=== PATIENT | male | born 1945 | race Caucasian/White ===

== ENCOUNTER 2020-04-02 07:35 | Outpatient (CLI) | payer MEDICARE, MEDICAID, SELFPAY ==
--- NOTE | 2020-04-02 08:00 | NM_ITS ---
WS: [id number] NUCLEAR MEDICINE HIDA SCAN CLINICAL INFORMATION: ABDONINAL PAIN TECHNIQUE: Following intravenous administration of 8.1 mCi of technetium 99m mebrofenin, images of th e abdomen were obtained over the course of 60 minutes. Next, gallbladder ejection fraction was determ ined by obtaining preprandial and one-hour postprandial images of the gallbladder following oral miguel stion of Ensure. COMPARISON: None. FINDINGS: Normal hepatic uptake at 5 minutes. Common bile duct is visualized by 10 minutes. Normal common bile duct and small bowel activity. Gallbladder is visualized by 15 minutes. No evidence of acute cholecys titis or choledocholithiasis. Gallbladder ejection fraction 65% within normal limits. No evidence of chronic cholecystitis. NM/NM hepatobiliary w phar* [id number] IMPRESSION: 1. No evidence of acute or chronic cholecystitis. 2. Gallbladder ejection fraction 65% within normal limits.
== END 2020-04-02 07:36 | disposition home or self-care (01) ==
LOC: NM 07:35
PROVIDERS: PCP Nurse Practitioner Family; Visit Provider Surgery
DX: R10.9 Unspecified abdominal pain (principal)
CPT/HCPCS: 78227; A9537

== ENCOUNTER 2020-04-25 08:04 | Outpatient (CLI) | payer MEDICARE, MEDICAID, SELFPAY ==
--- NOTE | 2020-04-25 08:45 | USCV_ITS ---
Stephanie Nixon Age: 74 Gender: M : 1945 Exam Date: 04/25/2020 08:22 Ordering Phys: Manjeet Cardozo MD Technologist: Yisel Ortiz [place] [facility] [place]ication: ABD PAIN ESPECIALLY AFTER EATING SOLIDS Type of Exam: Mesenteric Artery 8 Ounces Of ENSURE PLUS Time of Ingestion: 8:47 Minutes Post-Prandial: 20 Pre-Prandial Post-Prandial SUPERIOR MESENTERIC ARTERY Aorta @ SMA: 54 cm/s 49 cm/s Celiac Artery: 122 cm/s 28 cm/s Hepatic Artery: 53 cm/s 74 cm/s Splenic Artery: 68 cm/s 76 cm/s SMA Prox 165 cm/s 119 cm/s SMA Mid: 120 cm/s 102 cm/s SMA Distal: 115 cm/s 113 cm/s BONITA Prox: 46 cm/s 65 cm/s Findings: Comparison: none available. Mild ectasia and atherosclerosis abdomen aorta. No elevation or stensois of velocity preprandial mesenteric arteries. Decreased post prandial celiac axis velocity is thought to be technical . Conclusions No mesenteric or post prandial stenosis. Dr. Nora Lopez DO (Electronically Signed) Final Date: 25 April 2020 11:58 S
== END 2020-04-25 08:05 | disposition home or self-care (01) ==
LOC: US 08:07
PROVIDERS: PCP Nurse Practitioner Family; Visit Provider Surgery
DX: R10.9 Unspecified abdominal pain (principal); K55.1 Chronic vascular disorders of intestine
CPT/HCPCS: 93975

== ENCOUNTER 2020-08-20 12:30 | Outpatient (CLI) | payer MEDICARE, MEDICAID, SELFPAY ==
--- NOTE | 2020-08-20 12:45 | USCV_ITS ---
Nixon Brown Age: 74 Gender: M : 1945 Exam Date: 08/20/2020 13:25 Ordering Phys: Kelley Garcia MD ([email or web address]) Technologist: Sadaf Nava [place] [facility] [place]: PVD Risk Factors: Previous Vascular Surgery: RIGHT LEFT BP: 112.0 / 79.00 BP: 120.0/ 79.00 0 0 Waveform Velocity (cm/s) Velocity (cm/s) Waveform Triphasic 90.9 Iliac Prox 76.0 Triphasic Triphasic 94.8 Iliac Mid 73.5 Triphasic Triphasic 90.9 Iliac Distal 58.1 Triphasic Triphasic 116.9 HELIARC WELDER 70.1 Triphasic Triphasic 73.9 SFA Prox 121.3 Triphasic Triphasic 75.0 SFA Mid 47.4 Biphasic Triphasic SFA Dist Triphasic 77.2 67.3 Triphasic 55.1 POP 41.9 Biphasic Biphasic 34.2 ASSEMBLING MACHINE OPERATOR 59.5 Biphasic Biphasic 37.6 DPA 29.8 Biphasic 1.0 MARGARITO 1.1 FINDINGS RT PT 100 DPA 120 LT PT 90 LT DPA 140 Normal resting MARGARITO bilaterally. Abnormal arterial Doppler waveforms in the infrapopliteal vessels bilaterally CONCLUSIONS Features may suggest mild peripheral artery disease, involving the infrapopliteal vessels bilaterally Dr Shweta Ferreira MD FACC (Electronically Signed) Final Date: 21 August 2020 10:39 S
--- NOTE | 2020-08-20 13:30 | USCV_ITS ---
Nixon Brown Age: 74 Gender: M : 1945 Exam Date: 08/20/2020 13:00 Ordering Phys: Kelley Garcia MD ([email or web address]) Technologist: Sadaf Nava [place] [facility] [place]ication: dizziness giddiness BP: 120 / 79 HR: 80 Rhythm: PVCs Technical Quality: Good MEASUREMENTS (Male / Female) Normal Values 2D ECHO LV Diastolic Diameter PLAX 4.8 cm 4.2 - 5.9 / 3.9 - 5.3 cm LV Systolic Diameter PLAX 3.6 cm LV Chamber Size 5.6 cm IVS Diastolic Thickness 1.5 cm 0.6 - 1.0 / 0.6 - 0.9 cm IVS Systolic Thickness 1.9 cm LVPW Diastolic Thickness 1.1 cm 0.6 - 1.0 / 0.6 - 0.9 cm LVPW Systolic Thickness 1.6 cm RV Chamber Size 3.8 cm LVOT Diameter 2.4 cm LV Ejection Fraction 2D Teich 49.7 % LV Ejection Fraction MOD 2C 43.1 % LV Ejection Fraction 2C AL 42.2 % LA Diameter 3.6 cm LA Width 3.1 cm LA Height 4.9 cm RA Width 3.4 cm RA Height 4.5 cm M-MODE LV Diastolic Diameter MM 4.7 cm 4.2 - 5.9 / 3.9 - 5.3 cm LV Systolic Diameter MM 3.6 cm LV Ejection Fraction MM Teich 44.4 % IVS Diastolic Thickness MM 1.3 cm 0.6 - 1.0 / 0.6 - 0.9 cm IVS Systolic Thickness MM 1.3 cm LVPW Diastolic Thickness MM 1.2 cm 0.6 - 1.0 / 0.6 - 0.9 cm LVPW Systolic Thickness MM 1.0 cm Aortic Annulus Diameter 4.4 cm LA Ao Ratio MM 0.8 MV E Point Septal Separation 0.7 cm DOPPLER AV Peak Velocity 199.0 cm/s LVOT Peak Velocity 99.0 cm/s AV Area Cont Eq vti 2.0 cm squared AV Area Cont Eq pk 2.3 cm squared MV Area PHT 3.3 cm squared Mitral E to A Ratio 0.8 MV E' Velocity 30.5 cm/s Mitral E to MV E' Ratio 7.7 Mitral E to LV E' Lateral Ratio 6.7 Mitral E to LV E' Septal Ratio 9.4 TR Peak Velocity 255.6 cm/s TR Peak Gradient 26.1 mmHg TR Mean Velocity 185.7 cm/s TR Mean Gradient 16.3 mmHg TR Velocity Time Integral 42.6 cm Right Atrial Pressure 3.0 mmHg Pulmonary Artery Systolic Pressu 29.1 mmHg PV Peak Velocity 60.0 cm/s FINDINGS Left Ventricle Normal left ventricular cavity size. Increased left ventricular wall thickness. Moderate concentric left ventricular hypertrophy. Normal left ventricular systolic function. Left ventricular ejection fraction is estimated at 55 %. There is possible hypokinesis of basal inferior wall. Grade II diastolic dysfunction, moderately elevated filling pressures. Right Ventricle Normal right ventricular size and systolic function. Right ventricular systolic pressure 29.1 mmHg. Right Atrium Normal right atrial size. Left Atrium Mildly increased left atrial size. Mitral Valve Structurally normal mitral valve. No mitral valve stenosis. Trace mitral valve regurgitation. Aortic Valve Mildly thickened trileaflet aortic valve. No aortic valve stenosis. Trace aortic valve regurgitation. Tricuspid Valve Structurally normal tricuspid valve. No tricuspid valve stenosis. Mild to moderate tricuspid valve regurgitation. Pulmonic Valve Pulmonic valve not well visualized. Trace pulmonary valve regurgitation. Pericardium No pericardial effusion. Aorta Mildly dilated aortic root measured at 44 mm. CONCLUSIONS 1. Normal left ventricular cavity size. Moderate concentric left ventricular hypertrophy. Normal left ventricular systolic function. Left ventricular ejection fraction is estimated at 55 %. There is possible hypokinesis of basal inferior wall. Grade II diastolic dysfunction, moderately elevated filling pressures. 2. Normal right ventricular size and systolic function. 3. Mildly increased left atrial size. 4. Mild to moderate tricuspid valve regurgitation. 5. Mildly dilated aortic root measured at 44 mm. 6. Normal pulmonary artery pressure estimated at 29 mmHg. 7. No prior similar studies to compare. Kelley Garcia MD (Electronically Signed) Final Date: 21 August 2020 14:17 S
== END 2020-08-20 12:31 | disposition home or self-care (01) ==
LOC: US 12:31
PROVIDERS: PCP Nurse Practitioner Family; Visit Provider Internal Medicine Cardiovascular Disease
DX: I73.9 Peripheral vascular disease, unspecified (principal); R42 Dizziness and giddiness; I07.1 Rheumatic tricuspid insufficiency
CPT/HCPCS: 93306; 93925

== ENCOUNTER → 2020-10-24 08:39 | Outpatient (BNVA) | payer MEDICARE, MEDICAID, SELFPAY | PROVIDERS: PCP Nurse Practitioner Family; Referring Provider Nurse Practitioner Family; Visit Provider Internal Medicine | DX: E11.40 Type 2 diabetes mellitus with diabetic neuropathy, unspecified (principal); E11.51 Type 2 diabetes mellitus with diabetic peripheral angiopathy without gangrene; E11.65 Type 2 diabetes mellitus with hyperglycemia; I70.209 Unspecified atherosclerosis of native arteries of extremities, unspecified extremity; K86.2 Cyst of pancreas; R10.9 Unspecified abdominal pain | CPT/HCPCS: 99205 ==

== ENCOUNTER → 2022-03-28 09:21 | Outpatient (BNVA) | payer MEDICARE, MEDICAID, SELFPAY | PROVIDERS: PCP Nurse Practitioner Family; Visit Provider Internal Medicine | DX: E11.51 Type 2 diabetes mellitus with diabetic peripheral angiopathy without gangrene (principal); E11.65 Type 2 diabetes mellitus with hyperglycemia; E11.40 Type 2 diabetes mellitus with diabetic neuropathy, unspecified; E78.5 Hyperlipidemia, unspecified; E78.2 Mixed hyperlipidemia; I70.209 Unspecified atherosclerosis of native arteries of extremities, unspecified extremity; K86.2 Cyst of pancreas; R10.9 Unspecified abdominal pain; F17.210 Nicotine dependence, cigarettes, uncomplicated; Z79.84 Long term (current) use of oral hypoglycemic drugs; Z79.4 Long term (current) use of insulin | CPT/HCPCS: 99214 ==

== ENCOUNTER → 2022-06-26 11:16 | Outpatient (BNVA) | payer MEDICARE, MEDICAID, SELFPAY | PROVIDERS: PCP Nurse Practitioner Family; Visit Provider Thoracic Surgery (Cardiothoracic Vascular Surgery) | DX: Z86.718 Personal history of other venous thrombosis and embolism (principal) | CPT/HCPCS: 99203 ==

== ENCOUNTER → 2022-08-12 13:16 | Outpatient (BNVA) | payer MEDICARE, MEDICAID, SELFPAY | PROVIDERS: PCP Nurse Practitioner Family; Visit Provider Internal Medicine | DX: E11.51 Type 2 diabetes mellitus with diabetic peripheral angiopathy without gangrene (principal); E11.65 Type 2 diabetes mellitus with hyperglycemia; E11.40 Type 2 diabetes mellitus with diabetic neuropathy, unspecified; I70.209 Unspecified atherosclerosis of native arteries of extremities, unspecified extremity; K86.2 Cyst of pancreas; R10.9 Unspecified abdominal pain; Z79.4 Long term (current) use of insulin; Z79.84 Long term (current) use of oral hypoglycemic drugs | CPT/HCPCS: 99214 ==

== ENCOUNTER → 2022-12-22 10:08 | Outpatient (BNVA) | payer MEDICARE, MEDICAID, SELFPAY | PROVIDERS: PCP Nurse Practitioner Family; Visit Provider Internal Medicine | DX: E11.51 Type 2 diabetes mellitus with diabetic peripheral angiopathy without gangrene (principal); E11.65 Type 2 diabetes mellitus with hyperglycemia; E11.40 Type 2 diabetes mellitus with diabetic neuropathy, unspecified; E78.2 Mixed hyperlipidemia; K86.2 Cyst of pancreas; I73.9 Peripheral vascular disease, unspecified; Z79.84 Long term (current) use of oral hypoglycemic drugs; Z79.4 Long term (current) use of insulin | CPT/HCPCS: 99214 ==

== ENCOUNTER 2024-03-19 13:35 | Emergency (ER) | payer MEDICARE, MEDICAID, SELFPAY ==
[2024-03-19] VITALS (9 sets, daily range): BP systolic 118–177; BP diastolic 73–78; PULSE 62–91; RESP 10–24; TEMP 36.6; O2SAT 89–100; BMI 24.4
--- NOTE | 2024-03-19 13:57 | ECG_ITS ---
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 Measurements Intervals [place] Rate: 64 P: -45 NE: 139 QRS: -23 QRSD: 93 T: 75 QT: 405 QTc: 421 Interpretive Statements SINUS RHYTHM BORDERLINE LEFT AXIS DEVIATION [QRS AXIS < -20] Otherwise normal ECG No previous ECG available for comparison Electronically Signed On 03-20-2024 12:04:45 CDT by Joe Luo M.D. [email or web address] [email or web address] [email or web address] county community hospitalWanderio/store/[id number] f
--- NOTE | 2024-03-19 13:57 | XRR_ITS ---
PROCEDURE INFORMATION: Exam: XR Chest Exam date and time: 03/19/2024 2:44 PM Age: 78 years old Clinical indication: Chest pressure and pain. TECHNIQUE: Imaging protocol: Radiologic exam of the chest. Views: 1 view. COMPARISON: CT angio chest w abd pel w con 08/17/2018 3:58 AM FINDINGS: Lungs: Unremarkable. No consolidation. Pleural spaces: Unremarkable. No pleural effusion. No pneumothorax. Heart/Mediastinum: Unremarkable. No cardiomegaly. Bones/joints: There are degenerative changes in the thoracic spine and across the acromioclavicular joints. XR/XR chest 1V portable [id number] IMPRESSION: No acute findings.
--- NOTE | 2024-03-19 14:00 | ED_ITS ---
HPI - Chest Pain 2 General: Chief Complaint: Chest Pain Stated Complaint: chest pain Time Seen by Provider: 03/19/24 13:37 History of Present Illness: 78-year-old man with a history of diabet es, hypertension, hyperlipidemia, COPD, continued tobacco dependence, chronic hypoxemic respiratory failure on oxygen at night and he says he is on Eliquis and Plavix because he had blood clots all over , but says he has no known cardiac history. He presents today with sharp chest pain that goes all the way across his chest. It started about 3 hours ago. It has improved some at this time. No cough. No fevers. No new shortness of breath. Review of Systems 2 Narrative: Constitutional symptoms: Negative except as documented in HPI. Skin symptoms: Negative except as documented in HPI. Eye symptoms: Negative except as documented in HPI. ENMT symptoms: Negative except as documented in HPI. Respiratory symptoms: Negative except as documented in HPI. Cardiovascular symptoms: Negative except as documented in HPI. Gastrointestinal symptoms: Negative except as documented in HPI. Genitourinary symptoms: Negative except as documented in HPI. Musculoskeletal symptoms: Negative except as documented in HPI. Neurologic symptoms: Negative except as documented in HPI. Psychiatric symptoms: Negative except as documented in HPI. Endocrine symptoms: Negative except as documented in HPI. 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 Sludge in gallbladder Diabetes Hyperlipidemia COPD (chronic obstructive pulmonary disease) Abdominal pain Constipation Vomiting History of femoral angiogram Surgical History History of intravascular stent placement Family History Other COPD (chronic obstructive pulmonary disease) Cancer Diabetes Heart disease Denies family history of Anesthesia complication Bleeding disorder Social History Smoking and tobacco/nicotine status: current every day tobacco/nicotine user cigarettes Packs smoked per day: 1 Years cigarettes smoked: 65 Second hand smoke exposure: Yes Alcohol intake: never Substance/Drug Use: never Adopted: No Caregiver/support person: Yes Lives independently: Yes Household members: spouse Housing: House Physical Exam 2 Narrative: EXAM NARRATIVE: General: Alert, no acute distress. Skin: Warm, dry. Head: Normocephalic, atraumatic. Neck: Supple, trachea midline. Eye: Extraocular movements are intact. Ears, nose, mouth and throat: Oral mucosa moist. Cardiovascular: Regular rate and rhythm, Normal peripheral perfusion. Respiratory: some expiratory wheeze, mild increased wob, breath sounds are equal, Symmetrical chest wall expansion. Gastrointestinal: Soft, Nontender, Non distended, Normal bowel sounds. Musculoskeletal: Normal ROM, no deformity. Neurological: Alert and oriented to person, place, time, and situation, No focal neurological deficit observed. Psychiatric: Cooperative, appropriate mood & affect. Course 2 Vital Signs: Vital signs: Vital Signs Temperature 97.8 F 03/19/24 13:36 Pulse Rate 62 03/19/24 14:10 Respiratory Rate 24 H 03/19/24 13:50 Blood Pressure 118/73 03/19/24 14:10 Pulse Oximetry 94 03/19/24 14:10 MDM - Chest Pain Medical Decision Making Differential diagnosis for patient with chest pain includes but is not limited to and based on the above HPI, review of systems and physical exam: Pneumonia. unstable angina. angina. Acute coronary syndrome / MD. Pulmonary embolism. Costochondritis / musculoskeletal. Pleurisy. Pericarditis. Esophageal spasm. Pancreatis. Cholecystitis. Orders placed to evaluate differential diagnosis based on the above differential, HPI and physical exam EKG: Time 1349. Rate 64. Normal sinus rhythm, No ST-T changes, no ectopy, normal ND & QRS intervals, This was reviewed and interpreted by myself the ER physician at 1353 Repeat EKG: Time 1530. Rate 61. Normal sinus rhythm, No ST-T changes, no ectopy, normal ND & QRS intervals, This was reviewed and interpreted by myself the ER physician at 1534. No changes from previous EKG Chest x-ray: No acute process. No infiltrate. No pneumothorax. This was reviewed and interpreted by myself the ER physician. Lab Review: Laboratory results were reviewed and interpreted by myself the emergency room physician. No leukocytosis. Patient does have some mild thrombocytopenia with a platelet count of 122. No petechiae. No gum bleeding. BUN/creatinine are normal at 18 and 0.5. His blood sugars little bit elevated at 298. Serial troponins are negative. I reviewed the patient's medical record. Reexamination: Patient is remained stable. Minimal chest pain. Pain is atypical for cardiac pain. He does not have any signs or symptoms of pneumonia. He is taking his Eliquis as instructed. So likely not a new pulmonary embolism. No altered mental status. No focal motor deficits. Assessment and plan: Chest pain - Discharged home - Discussed findings and plan with patient. Answered any questions. - All laboratory values were reviewed and interpreted personally by myself, the ER physician - All imaging was reviewed and interpreted personally by myself, the ER physician. - Evaluation and treatment of this problem were appropriate in the emergency setting Lab Data 03/19/24 13:47 03/19/24 15:24 Radiology Impressions Chest X-Ray 03/19/24 13:57 IMPRESSION: No acute findings. Laboratory Results WBC 8.57 10^3/uL (3.29-11.43) 03/19/24 13:47 RBC 5.00 10^6/uL (3.85-5.65) 03/19/24 13:47 Hgb 16.10 g/dL (11.27-16.99) 03/19/24 13:47 Hct 48.7 % (37-53) 03/19/24 13:47 MCV 97.4 fl (82-101) 03/19/24 13:47 MCH 32.2 pg (27-33) 03/19/24 13:47 MCHC 33.1 g/dL (30-55) 03/19/24 13:47 RDW 13.6 % (12.1-15.1) 03/19/24 13:47 Plt Count 122 10^3/cmm (157-399) L 03/19/24 13:47 MPV 13.6 fL (7.4-10.4) H 03/19/24 13:47 Neut % (Auto) 61.6 % 03/19/24 13:47 Lymph % (Auto) 26.3 % 03/19/24 13:47 [place] % (Auto) 10.0 % 03/19/24 13:47 Eos % (Auto) 1.3 % 03/19/24 13:47 Baso % (Auto) 0.6 % 03/19/24 13:47 Neut # (Auto) 5.28 10^3/uL (1.8-7.7) 03/19/24 13:47 Lymph # (Auto) 2.3 10^3/uL (0.8-4.8) 03/19/24 13:47 [place] # (Auto) 0.9 10^3/uL (0.2-0.9) 03/19/24 13:47 Eos # (Auto) 0.1 10^3/uL (0.0-0.8) 03/19/24 13:47 Baso # (Auto) 0.1 10^3/uL (0.0-0.1) 03/19/24 13:47 Nucleated RBC % (auto) 0 % 03/19/24 13:47 Nucleated RBCs # 0.0 /100WBC 03/19/24 13:47 Sodium 137 mmol/L (136-145) 03/19/24 15:24 Potassium 4.4 mmol/L (3.5-5.1) 03/19/24 15:24 Chloride 102 mmol/L (98-107) 03/19/24 15:24 Carbon Dioxide 24 mmol/L (22-29) 03/19/24 15:24 Anion Gap 15.4 (5-19) 03/19/24 15:24 BUN 18 mg/dL (8-23) 03/19/24 15:24 Creatinine 0.5 mg/dL (0.7-1.2) L 03/19/24 15:24 GFR Calculation Not Reportable 03/19/24 15:24 Glucose 298 mg/dL (65-115) H 03/19/24 15:24 Calculated Osmolality 297 mOsm/kg (285-295) H 03/19/24 15:24 Lactic Acid 1.4 mmol/L (0.5-2.2) 03/19/24 15:22 Calcium 9.0 mg/dL (8.5-10.5) 03/19/24 15:24 Total Bilirubin 0.3 mg/dL (0.15-1.2) 03/19/24 15:24 AST 8 U/L (0-40) 03/19/24 15:24 ALT 12 U/L (0-41) 03/19/24 15:24 Alkaline Phosphatase 59 U/L (40-130) 03/19/24 15:24 Troponin T Baseline 15 ng/L (0-15) 03/19/24 13:47 Troponin T 120 Minute 12.83 ng/L (0-15) 03/19/24 15:24 Delta Troponin T -2.17 ABS# (0-10) L 03/19/24 15:24 C-Reactive Protein 3.0 mg/L (0.0-4.9) 03/19/24 13:47 NT-Pro-B Natriuret Pep 175 pg/mL (0-450) 03/19/24 13:47 Total Protein 6.8 g/dL (6.6-8.7) 03/19/24 15:24 Albumin 4.0 g/dL (3.5-5.2) 03/19/24 15:24 Globulin 2.8 g/dL (1.3-4.6) 03/19/24 15:24 Procalcitonin 0.02 ng/mL (0-0.5) 03/19/24 13:47 All radiology interpretation(s) finalized by discharge Discharge Plan Discharge Patient Disposition: Home Clinical Impression: Non-cardiac chest pain Condition: Stable Prescriptions: No Action lisinopril 2.5 mg tablet 2.5 mg PO DAILY glimepiride 2 mg tablet 2 mg PO DAILY Qty: 90 3RF Rx Instructions: Take one tablet by mouth daily. dicyclomine 20 mg tablet 20 mg PO BID fluticasone propionate [Allergy Relief (fluticasone)] 50 mcg/actuation spray,suspension 1 spray INTRANASAL DAILY Rx Instructions: administer into each nostril ondansetron HCl [Zofran] 4 mg tablet 4 mg PO Q8H famotidine [Pepcid] 40 mg tablet 40 mg PO DAILY Spiriva Respimat 1.25 mcg/actuation mist 2 puff INHALATION DAILY metformin 500 mg tablet extended release 24 hr 500 mg PO DAILY Linzess 72 mcg capsule 72 mcg PO DAILY clopidogrel [Plavix] 75 mg tablet 75 mg PO DAILY albuterol sulfate 90 mcg/actuation aerosol powdr breath activated 2 inh INHALATION Q6H PRN lactulose 20 gram/30 mL solution 20 gm PO BID atorvastatin 20 mg tablet 20 mg PO DAILY Creon 24,000-76,000 -120,000 unit capsule,delayed release(DR/EC) 1 cap PO BID Rx Instructions: administer with meals and/or snacks Eliquis 5 mg tablet 5 mg PO DAILY Tonemo SoloStstephen U-300 Insulin 300 unit/mL (1.5 mL) insulin pen 55 unit SUBCUT DAILY (DME) FreeStyle Alvarez 2 Sensor Kit See Rx Instructions .Route Qty: 6 3RF Rx Instructions: Check BS 4-6 times a day. Discharge Orders: Discharge ED (Routine); Ordered 03/19/24 Ordered By: Leah Steve Referrals: Sanjay Joseph [Primary Care Provider] - Discharge Diet: Usual diet Discharge Activity: Increase activity as tolerated Patient Instructions: Noncardiac Chest Pain (ED) Activity Restrictions/Additional Instructions: Thank you for choosing [facility] for your healthcare needs today. Please realize this is an emergency room and that we are providing you with a medical screening exam and this may not be complete and all inclusive of all the testing and or work up that you may need to determine your ailment or severity of your illness. You have been screened and evaluated and felt safe for discharge. Health conditions do change or evolve sometimes and as such it is important that you follow up with your Primary Doctor to be re checked, 3-5 days is a general good time frame for follow up. You are always welcome to return to the ED for re assessment if your symptoms are worsening or you have new concerns Coding Level of Care Code ED Work Environment Safety Inspector for Varun Torres
[2024-03-19 14:08] LABS: Basophils # 0.1 10^3/uL (0.0-0.1); Basophils % 0.6 %; Eosinophils # 0.1 10^3/uL (0.0-0.8); Eosinophils % 1.3 %; Hematocrit 48.7 % (37-53); Lymphocytes # 2.3 10^3/uL (0.8-4.8); Lymphocytes % 26.3 %; Mean Corpuscular HGB Conc 33.1 g/dL (30-55); Mean Corpuscular Hemoglobin 32.2 pg (27-33); Mean Corpuscular Volume 97.4 fl (82-101); Mean Platelet Volume 13.6 fL (7.4-10.4); Monocytes # 0.9 10^3/uL (0.2-0.9); Neutrophils # 5.28 10^3/uL (1.8-7.7); Neutrophils % 61.6 %; Nucleated Red Blood Cells % 0 %; Platelet Count 122 10^3/cmm (157-399); Red Cell Distribution Width 13.6 % (12.1-15.1); White Blood Count 8.57 10^3/uL (3.29-11.43)
[2024-03-19 14:20] LABS: Troponin(5th) Baseline 15 ng/L (0-15)
[2024-03-19 14:28] LABS: NT Pro B Type Natriuretic Pept 175 pg/mL (0-450); Procalcitonin 0.02 ng/mL (0-0.5)
[2024-03-19 15:56] LABS: Lactic Sepsis W/Reflex 1.4 mmol/L (0.5-2.2)
[2024-03-19 15:57] LABS: Troponin 5 2HR 12.83 ng/L (0-15)
--- NOTE | 2024-03-19 15:57 | ECG_ITS ---
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 Measurements Intervals [place] Rate: 61 P: -22 CA: 156 QRS: -33 QRSD: 90 T: 65 QT: 427 QTc: 432 Interpretive Statements SINUS RHYTHM LEFT AXIS DEVIATION [QRS AXIS < -30] No previous ECG available for comparison Electronically Signed On 03-19-2024 16:48:37 CDT by Joe Luo M.D. [id number]
[2024-03-19 15:59] LABS: Troponin 5 2HR Delta -2.17 ABS# (0-10)
[2024-03-19 16:11] LABS: Alanine Aminotransferase 12 U/L (0-41); Alkaline Phosphatase 59 U/L (40-130); Anion Gap 15.4 (5-19); Aspartate Amino Transferase 8 U/L (0-40); Blood Urea Nitrogen 18 mg/dL (8-23); Carbon Dioxide 24 mmol/L (22-29); Chloride 102 mmol/L (98-107); Globulin 2.8 g/dL (1.3-4.6); Glucose 298 mg/dL (65-115); Osmolality Calculated 297 mOsm/kg (285-295); Potassium 4.4 mmol/L (3.5-5.1); Sodium 137 mmol/L (136-145); Total Bilirubin 0.3 mg/dL (0.15-1.2); Total Protein 6.8 g/dL (6.6-8.7)
[2024-03-19 16:13] LABS: Creatinine Clr Calc Pharmacy 90.5622
== END 2024-03-19 16:49 | disposition home or self-care (01) ==
PROVIDERS: Emergency Provider Emergency Medicine; PCP Family Medicine
DX: R07.89 Other chest pain (principal); Z79.84 Long term (current) use of oral hypoglycemic drugs; Z79.02 Long term (current) use of antithrombotics/antiplatelets; Z79.4 Long term (current) use of insulin; Z79.01 Long term (current) use of anticoagulants; E11.9 Type 2 diabetes mellitus without complications; E78.5 Hyperlipidemia, unspecified; J44.9 Chronic obstructive pulmonary disease, unspecified; F17.210 Nicotine dependence, cigarettes, uncomplicated
CPT/HCPCS: 36415; 71045; 80053; 83605; 83880; 84145; 84484; 85025; 86140; 87040; 93005; 99285